=== PATIENT | male | born 1970 | race Caucasian/White ===

== ENCOUNTER 2018-12-13 23:12 | Emergency (ER) | payer BC, OTHER ==
[~2018-12-13] VITALS: Ht 185.4 cm; Wt 96.3 kg
[2018-12-13 23:15] VITALS: BP 147/76; PULSE 89; RESP 19; Ht 185.4 cm; Wt 96.3 kg
[2018-12-14] MEDS ORDERED: CEPH-443 PO (00:57)
[2018-12-14] MEDS ORDERED: SULF1TAB31 PO (00:57)
--- NOTE | 2018-12-14 01:45 | ERD ---
ER Documentation Chief Complaint Chief Complaint FACIAL REDNESS AND BURNING; AFTER SHAVING X3DAYS HPI 48-year-old male presents complaining of facial rash and burning for the past 3 days. Patient states that he cut himself while shaving and then went to the gym and thinks that he got an infection from having contact with dirty equipment there. He is scheduled to receive surgery on his sinuses next week and he spoke to his surgeon and sent him pictures of his face, and the surgeon was concerned for possible staph infection and told him he should come to the ER. Patient said that he is tried steroid cream but it moy too much when he puts it on. Denies any other treatments. Denies fevers, chills. Denies allergies. Denies medical problems. ROS All systems reviewed and are negative except as per history of present illness. Medications Home Meds Active Scripts Sulfamethoxazole/Trimethoprim* (Bactrim Ds* Tablet) 1 Each Tablet, 1 TAB PO BID for infection, #14 TAB Prov:JOSE HIDALGO 12/14/18 Cephalexin* (Keflex*) 500 Mg Capsule, 500 MG PO QID for infection for 7 Days, CAP Prov:JOSE HIDALGO 12/14/18 Allergies Allergies: Coded Allergies: hydrocodone (Verified Allergy, Unknown, 12/14/18) latex (Verified Allergy, Unknown, 12/14/18) PMhx/Soc Hx Alcohol Use: Yes (occassional) Hx Substance Use: No Hx Tobacco Use: No Smoking Status: Never smoker FmHx Family History: No diabetes, No coronary disease, No other Physical Exam Vitals Vital Signs Date Temp Pulse Resp B/P (MAP) Pulse Ox O2 O2 Flow FiO2 Time Delivery Rate 12/13/18 99.0 89 19 147/76 100 23:15 (99) Physical Exam Const: No acute distress Head: Atraumatic Eyes: Normal Conjunctiva ENT: Normal External Ears, Nose and Mouth. Neck: Full range of motion. No meningismus. Resp: Clear to auscultation bilaterally Cardio: Regular rate and rhythm, no murmurs Abd: Soft, non tender, non distended. Normal bowel sounds Skin: Erythematous patches noted over the face diffusely with overlying scales. There is no fluctuance or induration noted. There is tenderness to palpation over the patches. There is no drainage or lymphatic streaking noted. Back: No midline or flank tenderness Ext: No cyanosis, or edema Neur: Awake and alert Psych: Normal Mood and Affect Procedures/MDM Patient's presentation is consistent with possible dermatitis versus bacterial infection. Given surgeon's concern for staph infection, decision was made to treat as a possible cellulitis with Keflex and Bactrim. I have low suspicion for abscess, acute space infection, sepsis, or any other emergent condition. Patient discharged with strict ER precautions. Patient advised to follow up with PMD. All questions answered at discharge. Departure Diagnosis: Primary Impression: Facial rash Condition: Stable Patient Instructions: Self-Care for Skin Rashes Referrals: [facility] YOU HAVE RECEIVED A MEDICAL SCREENING EXAM AND THE RESULTS INDICATE THAT YOU DO NOT HAVE A CONDITION THAT REQUIRES URGENT TREATMENT IN THE EMERGENCY DEPARTMENT. FURTHER EVALUATION AND TREATMENT OF YOUR CONDITION CAN WAIT UNTIL YOU ARE SEEN IN YOUR DOCTORS OFFICE WITHIN THE NEXT 1-2 DAYS. IT IS YOUR RESPONSIBILITY TO MAKE AN APPOINTMENT FOR FOLOW-UP CARE. IF YOU HAVE A PRIMARY DOCTOR --you should call your primary doctor and schedule an appointment IF YOU DO NOT HAVE A PRIMARY DOCTOR YOU CAN CALL OUR PHYSICIAN REFERRAL HOTLINE AT IF YOU CAN NOT AFFORD TO SEE A PHYSICIAN YOU CAN CHOSE FROM THE FOLLOWING [facility] [address] [facility]. [facility] [address] [facility] [facility] [address] [facility] [facility] [address] [facility]. [facility] [phone] [facility]. [facility]. [address] Additional Instructions: FOLLOW UP WITH YOUR PRIMARY CARE PHYSICIAN TOMORROW.Return to this facility if you are not improving as expected. JOSE HIDALGO Dec 14, 2018 01:45
== END 2018-12-14 01:09 | disposition home or self-care (01) ==
LOC: FTE 23:12
DX: R21 Rash and other nonspecific skin eruption (principal); Z91.040 Latex allergy status
CPT/HCPCS: 99283